=== PATIENT | female | born 1985 | race Caucasian/White ===

== ENCOUNTER → 2020-01-02 14:44 | Outpatient (CLI) | payer SELFPAY ==
--- NOTE | 2020-01-02 | DI.US.S_ITS ---
LIMITED ULTRASOUND OF RIGHT BREAST: 01/02/2020 CLINICAL: Palpable right breast lump. Comparison is made [facility] and real-time ultrasound of the right breast 10 o'clock region were performed. Ohara scale images of the real-time examination were reviewed. There is a benign 2.7 cm x 2.1 cm x 1.6 cm oval cyst in the right breast at 10 o'clock anterior depth 5 cm from the nipple. This oval cyst is anechoic with a well-defined boundary and posterior acoustic enhancement. This correlates as palpated, to the reported pain, and with mammography findings. Color flow imaging demonstrates that there is no vascularity present. IMPRESSION: BENIGN There is no sonographic evidence of malignancy. Palpable abnormality in the right breast corresponds to a 2.7 cm simple cyst and is benign. Exam findings were conveyed to the patient. Patient is advised to monitor for continued symptoms. A cyst aspiration for symptomatic relief could be considered if symptoms persist. Note, similar masses in the left breast are seen on same day mammogram. Targeted ultrasound of the left breast is recommended. This exam was interpreted at Station ID: [id number]. Electronically Signed By: Adryan Sanabria M.D. slc/:01/02/2020 17:09:34 letter sent: Normal Exam Ultrasound BI-RADS: 2 Benign
--- NOTE | 2020-01-02 | DI.MG.S_ITS ---
BILATERAL DIGITAL DIAGNOSTIC MAMMOGRAM 3D/2D: 01/02/2020 CLINICAL: Baseline exam. Right breast lump. Baseline mammogram. No prior exams were available for comparison. The tissue of both breasts is extremely dense, which lowers the sensitivity of mammography. There is a 3 cm oval low density mass with a circumscribed margin in the right breast at 10 o'clock anterior depth. This correlates as palpated and to the area of reported pain. There is a 2.7 cm oval low density mass with a circumscribed margin in the left breast at 1 o'clock posterior depth. There also is a 2 cm oval mass with a circumscribed margin in the left breast central to the nipple posterior depth. No other significant masses or calcifications are seen in either breast. IMPRESSION: INCOMPLETE: NEEDS ADDITIONAL IMAGING EVALUATION Multiple benign appearing masses bilaterally in this young patient on baseline mammogram. 1) Right breast palpable abnormality corresponds to a circumscribed low density mass in the right breast at 10 o'clock anterior depth measuring 3 cm and resembles a cyst and is indeterminate. -A targeted ultrasound is recommended and will immediately follow. 2) Left breast circumscribed low density masses measuring 2.7 cm and 2 cm resemble additional cysts and are probably benign. -Recommend targeted ultrasound for confirmation of benignity rather than follow-up mammogram to demonstrate long-term stability. This will be preformed at a different time. This exam was interpreted at Station ID: [id number]. NOTE: For mammograms, a report in lay terms will be sent to the patient. Approximately 15% of breast malignancies will not be visualized mammographically. In the management of a palpable breast mass, a negative mammogram must not discourage biopsy of a clinically suspicious lesion. Electronically Signed By: Adryan Sanabria M.D. [facility] [place]/:01/03/2020 10:32:46 Entry: aman - 01/03/2020 10:32:46 letter sent: Need Ultrasound ACR BI-RADS Category 0: Incomplete [id number]
--- NOTE | 2020-01-08 17:01 | PC.NURSE ---
Received fax noting that patient is self pay and would call to schedule breast biopsy / US due to lack of funds. Referred to [employer] to see if there is any assistance available.
== END ==
PROVIDERS: Referring Provider Nurse Practitioner; Visit Provider Nurse Practitioner
DX: R92.8 Other abnormal and inconclusive findings on diagnostic imaging of breast (principal); N60.01 Solitary cyst of right breast; N60.02 Solitary cyst of left breast
CPT/HCPCS: 76642; 77066; G0279

== ENCOUNTER 2022-02-16 10:14 | Emergency (ER) | payer SELFPAY ==
[2022-02-16] VITALS (22 sets, daily range): BP systolic 98–147; BP diastolic 56–83; PULSE 76–120; RESP 16–28; TEMP 37.3; O2SAT 96–100; BMI 26.6
--- NOTE | 2022-02-16 10:41 | DI.US.S_ITS ---
LIMITED ULTRASOUND OF LEFT BREAST AND AXILLA: 02/16/2022 CLINICAL: Palpable left breast lump and focal pain. Comparison is made to exam dated: 01/02/2020 mammogram - [facility]. Color flow and real-time ultrasound of the left breast 12-2 o'clock, and axilla regions were performed. Ohara scale images of the real-time examination were reviewed. There is a 0.6 cm x 0.5 cm x 0.4 cm oval cyst in the left breast at 12 o'clock anterior depth 1 cm from the nipple. This oval cyst is hypoechoic with posterior acoustic enhancement. Color flow imaging demonstrates that there is an adjacent vascularity. There also is a benign 3.1 cm x 2.5 cm x 2.1 cm oval simple cyst in the left breast at 1 o'clock posterior depth 7 cm from the nipple. This oval simple cyst is anechoic with a well-defined boundary and posterior acoustic enhancement. This abnormality is not significantly changed compared to mammogram in 2020 and correlates as palpated, to the reported pain, and with mammography findings. Color flow imaging demonstrates that there is no vascularity present. Additionally, there is a benign 2.8 cm x 2.1 cm x 1.2 cm oval simple cyst in the left breast at 2 o'clock posterior depth 6 cm from the nipple. This oval simple cyst is anechoic with a well-defined boundary and posterior acoustic enhancement. This abnormality is not significantly changed compared to mammogram in 2020 and correlates as palpated and with mammography findings. Color flow imaging demonstrates that there is no vascularity present. No significant abnormalities were seen sonographically in the left axilla. IMPRESSION: INCOMPLETE: NEEDS ADDITIONAL IMAGING EVALUATION The 0.6 cm complicated cyst in the left breast at 12 o'clock anterior depth is probably benign. Differential diagnosis includes a fibroadenoma. -A follow-up ultrasound in 6 months is recommended to demonstrate stability. The 3.1 cm simple cyst in the left breast at 1 o'clock posterior depth is benign. The 2.8 cm simple cyst in the left breast at 2 o'clock posterior depth is benign. These cyst correlate to the palpable abnormality in the left breast. These cysts are similar in size to the mammogram from 2020. -Cyst aspiration could be considered for pain. -Mammogram is recommended to complete the work-up for palpable breast abnormality. No enlarged left axillary lymph nodes. Exam findings were conveyed to the patient. This exam was interpreted at Station ID: [id number]. Electronically Signed By: Adryan Sanabria M.D. slc/:02/16/2022 14:21:24 letter sent: Additional Imaging Needed Ultrasound BI-RADS: 0 Indeterminate
--- NOTE | 2022-02-16 10:42 | ED_ITS ---
HPI - General Adult General Chief complaint: Fever Stated complaint: pain in breast t-21 & lower back t-3 Time Seen by Provider: 02/16/22 10:28 Source: patient Mode of arrival: Ambulatory History of Present Illness HPI narrative: 36-year-old female who is here for evaluation of pain in her left breast. This has been going on for the past 3 weeks. She is noticed a lump in the left side of her breast. It has been enlarging and becoming more painful. She states ?I do not know ?if she is had any skin changes over the area. She also states that she is been having some nipple discharge but can not describe whether not it is purulent or bloody or fluid. She has had mammograms in the past. Was told that she had ?dense breasts. She is also having right-sided lower back discomfort and also other findings consistent with a urinary tract infection. She is having dysuria. Is having nausea because of the pain. No fevers. No change in bowel habits. Has had kidney stones in the past and she states this feels different than the kidney stones. She states ?I do not know ?if the symptoms are worse with palpation or movement or breathing. Related Data Previous Rx's Medication Instructions Recorded sulfamethoxazole 800 1 tab PO BID 14 days #28 tabs 02/16/22 mg-trimethoprim 160 mg tablet (Bactrim DS) Allergies Allergy/AdvReac Type Severity Reaction Status Date / Time hydrocodone [From Vicodin] Allergy Severe ANAPHYLAXIS Verified 02/16/22 10:35 oxycodone Allergy Severe ANAPHYLAXIS Verified 02/16/22 10:35 aloe vera Allergy Unknown Verified 02/16/22 10:35 TYLER Allergy Severe ANAPHYLAXIS Uncoded 12/06/19 09:58 Review of Systems Review of Systems ROS Unobtainable: All systems reviewed & are unremarkable except as noted in HPI and below Patient History Medical History Kidney stones Lump of breast, right Surgical History History of third molar tooth extraction Social History Smoking Status: Current every day smoker Smoking Status: Current every day smoker alcohol intake frequency: a few times a month Substance Use Type: does not use Exam Initial Vital Signs Initial Vital Signs: Vital Signs Temperature 99.2 F 02/16/22 10:20 Pulse Rate 120 H 02/16/22 10:20 Respiratory Rate 22 02/16/22 10:20 Blood Pressure 147/83 H 02/16/22 10:20 Pulse Oximetry 100 02/16/22 10:20 Oxygen Delivery Method 02/16/22 10:20 Const General: No diaphoretic and other (Appears uncomfortable) HENIN Head: normal to inspection and normocephalic Chest Other: With nursing at bedside a left breast exam was performed. There is a 1 cm x 1 cm freely movable tender mass in the left breast in the upper outer quadrant. There is no overlying skin changes. No nipple discharge. No axilla lymphadenopathy felt. Resp Effort & Inspection: normal respiratory effort Cardio Rate: tachycardic GI Inspection: normal to inspection Palpation: soft, No guarding and No tender Back/Spine/Pelvis Back: CVA tenderness right Skin General: no rashes or lesions noted Neuro General: patient alert, patient awake and moves all extremities Speech: speech normal Extrem General: normal to inspection and capillary refill normal Psych Appearance: grossly normal Course Orders Ordered: ED Orders 02/16/22 10:41 US breast LT limited Stat 02/16/22 10:45 Complete Blood Count AUTO DIFF Stat Comprehensive Metabolic Panel Stat Lactate (Lactic Acid) Stat Lipase Stat Test Serum,Qual Stat Procalcitonin Stat 02/16/22 11:00 Urinalysis and Microscopic Stat Urine Culture Stat Urine Culture Stat 02/16/22 11:14 Blood Culture Stat 02/16/22 14:47 Consult to [employer]MENT MANAGER - [employer] Stat Discontinued Medications Sodium Chloride (Normal Saline 0.9%) 1,000 mls @ 1,000 mls/hr IV BOLUS ONE Stop: 02/16/22 11:28 Last Infusion: 02/16/22 12:35 Dose: 0 mls/hr Documented By: Admin: 02/16/22 10:54 Dose: 1,000 mls/hr Documented By: SANDIP Ceftriaxone Sodium 1,000 mg/ (Sodium Chloride) 100 mls @ 200 mls/hr IV NOW ONE Stop: 02/16/22 11:37 Last Infusion: 02/16/22 12:35 Dose: 0 mls/hr Documented By: Admin: 02/16/22 12:02 Dose: 200 mls/hr Documented By: ADIEL Ketorolac Tromethamine (Ketorolac 30 Mg/Ml Vial) 30 mg IV NOW ONE Stop: 02/16/22 10:30 Last Admin: 02/16/22 10:53 Dose: 30 mg Documented By: SANDIP Ondansetron HCl (Ondansetron 4 Mg/2 Ml Inj) 4 mg IV NOW ONE Stop: 02/16/22 10:47 Last Admin: 02/16/22 10:53 Dose: 4 mg Documented By: SANDIP Vital Signs Vital signs: Vital Signs - 8 hr 02/16/22 10:20 02/16/22 10:25 02/16/22 10:26 Temperature 99.2 F Pulse Rate 120 H 119 H 105 H Respiratory Rate 22 Blood Pressure 147/83 H Pulse Oximetry 100 100 99 Oxygen Delivery Method Room Air 02/16/22 10:26 02/16/22 10:30 02/16/22 10:45 Temperature Pulse Rate 112 H 120 H Respiratory Rate 28 H Blood Pressure 147/83 H Pulse Oximetry 100 99 Oxygen Delivery Method Room Air 02/16/22 11:00 02/16/22 11:10 02/16/22 11:10 Temperature Pulse Rate 106 H 112 H Respiratory Rate Blood Pressure 133/73 Pulse Oximetry 99 99 Oxygen Delivery Method 02/16/22 11:15 02/16/22 11:30 02/16/22 11:30 Temperature Pulse Rate 106 H 97 H Respiratory Rate Blood Pressure 109/62 Pulse Oximetry 98 99 Oxygen Delivery Method 02/16/22 11:45 02/16/22 12:00 02/16/22 12:00 Temperature Pulse Rate 103 H 97 H Respiratory Rate Blood Pressure 113/58 L Pulse Oximetry 97 98 Oxygen Delivery Method 02/16/22 12:15 02/16/22 12:30 02/16/22 12:30 Temperature Pulse Rate 95 H 95 H Respiratory Rate Blood Pressure 104/56 L Pulse Oximetry 98 98 Oxygen Delivery Method 02/16/22 12:45 02/16/22 13:00 02/16/22 13:00 Temperature Pulse Rate 94 H 85 Respiratory Rate Blood Pressure 103/62 Pulse Oximetry 96 96 Oxygen Delivery Method Room Air 02/16/22 13:15 02/16/22 13:30 02/16/22 13:30 Temperature Pulse Rate 92 H 88 Respiratory Rate Blood Pressure 104/59 L Pulse Oximetry 97 96 Oxygen Delivery Method Room Air Room Air 02/16/22 13:45 02/16/22 14:00 02/16/22 14:00 Temperature Pulse Rate 87 83 Respiratory Rate Blood Pressure 98/57 L Pulse Oximetry 97 96 Oxygen Delivery Method Room Air 02/16/22 14:15 02/16/22 14:30 02/16/22 14:30 Temperature Pulse Rate 85 87 Respiratory Rate Blood Pressure 99/61 Pulse Oximetry 97 97 Oxygen Delivery Method 02/16/22 15:45 Temperature Pulse Rate 76 Respiratory Rate 16 Blood Pressure 98/56 L Pulse Oximetry 98 Oxygen Delivery Method Room Air Medical Decision Making Lab Data Lab results reviewed: Yes I reviewed the patient's lab results. Result diagrams: 02/16/22 10:45 02/16/22 10:45 Labs: Lab Results 02/16/22 02/16/22 02/16/22 Range/Units 10:45 10:45 10:45 WBC 6.8 (4.5-11.0) X10^3/uL RBC 4.51 (4.0-5.2) X10^6/uL Hgb 13.7 (12.0-16.0) g/dL Hct 40.7 (36-46) % MCV 90.3 (80-100) fL MCH 30.4 (26-34) PG MCHC 33.6 (30-36) % RDW 13.5 (11.6-14.8) % Plt Count 188 (150-400) X10^3/uL Neut % (Auto) 92.6 H (50-75) % Lymph % (Auto) 5.7 L (25-40) % Marathon % (Auto) 0.6 L (3-14) % Eos % (Auto) 1.0 L (2-4) % Baso % (Auto) 0.1 (0-2) % Neut # (Auto) 6300 (3390-5583) /uL Lymph # (Auto) 400 L (5287-0849) /uL Marathon # (Auto) 0 (0-900) /uL Eos # (Auto) 100 (0-450) /uL Baso # (Auto) 0 (0-100) /uL Sodium 137 (137-145) mmol/L Potassium 4.0 (3.4-5.1) mmol/L Chloride 103 (98-107) mmol/L Carbon Dioxide 26 (22-32) mmol/L BUN 14 (7-17) mg/dL Creatinine 0.89 (0.52-1.04) mg/dL Estimated GFR > 60 (>60) mL/min BUN/Creatinine Ratio 15.7 (6-22) Glucose 113 H (70-100) mg/dL Lactate 1.8 (0.7-2.1) mmol/L Calcium 9.1 (8.4-10.2) mg/dL Total Bilirubin 1.0 (0.2-1.3) mg/dL AST 22 (14-36) IU/L ALT 20 (<35) IU/L Alkaline Phosphatase 78 (38-126) U/L Total Protein 7.7 (6.3-8.2) g/dL Albumin 4.4 (3.5-5.0) g/dL Globulin 3.3 (1.7-4.1) g/dL Albumin/Globulin Ratio 1.3 (1.0-2.8) Lipase 69 (23-300) U/L Procalcitonin 0.11 (<0.5) ng/mL Serum , Qual (Negative) Urine Color Urine Appearance Urine pH (4.5-8.0) Ur Specific Liberal (1.000-1.035) Urine Protein (Negative) Urine Glucose (UA) (Negative) g/dL Urine Ketones (NEGATIVE) Urine Occult Blood (Negative) Urine Nitrate (Negative) Urine Bilirubin (NEGATIVE) Urine Urobilinogen (0.2) E.U./dL Ur Leukocyte Esterase (NEGATIVE) Urine RBC (0-5/HPF) Urine WBC (0-5/HPF) Ur Squamous Epith Cells (0-5/HPF) Urine Bacteria (None) Ur Culture Indicated? 02/16/22 02/16/22 Range/Units 10:45 11:00 WBC (4.5-11.0) X10^3/uL RBC (4.0-5.2) X10^6/uL Hgb (12.0-16.0) g/dL Hct (36-46) % MCV (80-100) fL MCH (26-34) PG MCHC (30-36) % RDW (11.6-14.8) % Plt Count (150-400) X10^3/uL Neut % (Auto) (50-75) % Lymph % (Auto) (25-40) % Marathon % (Auto) (3-14) % Eos % (Auto) (2-4) % Baso % (Auto) (0-2) % Neut # (Auto) (3742-2069) /uL Lymph # (Auto) (0240-7285) /uL Marathon # (Auto) (0-900) /uL Eos # (Auto) (0-450) /uL Baso # (Auto) (0-100) /uL Sodium (137-145) mmol/L Potassium (3.4-5.1) mmol/L Chloride (98-107) mmol/L Carbon Dioxide (22-32) mmol/L BUN (7-17) mg/dL Creatinine (0.52-1.04) mg/dL Estimated GFR (>60) mL/min BUN/Creatinine Ratio (6-22) Glucose (70-100) mg/dL Lactate (0.7-2.1) mmol/L Calcium (8.4-10.2) mg/dL Total Bilirubin (0.2-1.3) mg/dL AST (14-36) IU/L ALT (<35) IU/L Alkaline Phosphatase (38-126) U/L Total Protein (6.3-8.2) g/dL Albumin (3.5-5.0) g/dL Globulin (1.7-4.1) g/dL Albumin/Globulin Ratio (1.0-2.8) Lipase (23-300) U/L Procalcitonin (<0.5) ng/mL Serum , Qual Negative (Negative) Urine Color Yellow Urine Appearance Cloudy Urine pH 6.5 (4.5-8.0) Ur Specific Liberal 1.015 (1.000-1.035) Urine Protein 2+ H (Negative) Urine Glucose (UA) Negative (Negative) g/dL Urine Ketones Negative (NEGATIVE) Urine Occult Blood 3+ H (Negative) Urine Nitrate Positive H (Negative) Urine Bilirubin Negative (NEGATIVE) Urine Urobilinogen 0.2 (0.2) E.U./dL Ur Leukocyte Esterase 3+ H (NEGATIVE) Urine RBC >100/hpf H (0-5/HPF) Urine WBC >100/hpf H (0-5/HPF) Ur Squamous Epith Cells 0-1 /hpf (0-5/HPF) Urine Bacteria Many (>30) H (None) Ur Culture Indicated? Specimen cultured Imaging Data Breast ultrasound: Radiologist's Impression: [address] [address] Ultrasound Report Signed Patient: Bia Rausch MR#: [id number] : 1985 Acct:[id number] Age/Sex: 36 / F Date of Service: 02/16/22 Loc: ED Accession Number: [id number] ?? Procedure: US breast LT limited Ordering Provider: Gus Temple D.O. LIMITED ULTRASOUND OF LEFT BREAST AND AXILLA: 02/16/2022 CLINICAL: Palpable left breast lump and focal pain.? ? Comparison is made to exam dated:? 01/02/2020 mammogram - [facility].? ? Color flow and real-time ultrasound of the left breast 12-2 o'clock, and axilla regions were performed.? Ohara scale images of the real-time examination were reviewed.? ? There is a 0.6 cm x 0.5 cm x 0.4 cm oval cyst in the left breast at 12 o'clock anterior depth 1 cm from the nipple.? This oval cyst is hypoechoic with posterior acoustic enhancement.? Color flow imaging demonstrates that there is an adjacent vascularity.? ? There also is a benign 3.1 cm x 2.5 cm x 2.1 cm oval simple cyst in the left breast at 1 o'clock posterior depth 7 cm from the nipple.? This oval simple cyst is anechoic with a well-defined boundary and posterior acoustic enhancement.? This abnormality is not significantly changed compared to mammogram in 2019 and correlates as palpated, to the reported pain, and with mammography findings.? Color flow imaging demonstrates that there is no vascularity present.? ? Additionally, there is a benign 2.8 cm x 2.1 cm x 1.2 cm oval simple cyst in the left breast at 2 o'clock posterior depth 6 cm from the nipple.? This oval simple cyst is anechoic with a well-defined boundary and posterior acoustic enhancement.? This abnormality is not significantly changed compared to mammogram in 2019 and correlates as palpated and with mammography findings.? Color flow imaging demonstrates that there is no vascularity present.? ? No significant abnormalities were seen sonographically in the left axilla.? ? IMPRESSION: INCOMPLETE: NEEDS ADDITIONAL IMAGING EVALUATION The 0.6 cm complicated cyst in the left breast at 12 o'clock anterior depth is probably benign. Differential diagnosis includes a fibroadenoma. -A follow-up ultrasound in 6 months is recommended to demonstrate stability.? ? The 3.1 cm simple cyst in the left breast at 1 o'clock posterior depth is benign.? The 2.8 cm simple cyst in the left breast at 2 o'clock posterior depth is benign. These cyst correlate to the palpable abnormality in the left breast. These cysts are similar in size to the mammogram from 2019. -Cyst aspiration could be considered for pain. ? -Mammogram is recommended to complete the work-up for palpable breast abnorm ality. ? No enlarged left axillary lymph nodes. ? Exam findings were conveyed to the patient.? ? This exam was interpreted at Station ID: [id number].? Electronically Signed By: Adryan Sanabria M.D.? slc/:02/16/2022 14:21:24? ? ? letter sent: Additional Imaging Needed? Ultrasound BI-RADS: 0 Indeterminate MDM Narrative Medical decision making narrative: Patient does have a nitrite positive urine and UTI like symptoms. Given her p resentation and her right-sided flank pain there is concern about pyelonephritis. The rest of her labs are unremarkable. Ultrasound of the breast shows cysts what she is feeling. She does have a cyst that requires ultrasound follow-up in approximately 6 months. I did discuss this with her. It is also recommended that she have a mammogram. I discussed this with her as well. Patient states she does not have a primary doctor and does not have insurance. Social work consult was placed. She did expressed understanding of the recommendations above. Will send home with antibiotics. She was given return precautions. She expressed understanding and agreement. Discharge Plan Departure Patient Disposition: Home Clinical Impression: Pyelonephritis, Cyst of left breast Instructions: DI for Kidney Infection, DI for Breast Cyst Activity Restrictions/Additional Instructions: Antibiotics were sent to [facility] per your request. The ultrasound today does show cysts in your left breast. You do need a follow-up with a mammogram and also a follow-up ultrasound in 6 weeks. You do need to make contact with the primary doctor. Return to the emergency department for any new symptoms. Prescriptions: New sulfamethoxazole-trimethoprim [Bactrim DS] 800-160 mg tablet 1 tab PO BID 14 Days Qty: 28 0RF Referrals: Miscellaneous,Doctor, MD [Primary Care Provider] - Visit Report Forms: Patient Portal/API
[2022-02-16] MEDS: KETOROLAC 30 MG/ML VIAL IV (10:53)
[2022-02-16] MEDS: ONDANSETRON 4 MG/2 ML INJ IV (10:53)
[2022-02-16] MEDS: SODIUM CHLORIDE 0.9% 1,000 ML 1000 ML IV (10:54)
[2022-02-16 10:55] LABS: Add Manual Diff / Slide Review NO; Basophils Absolute Auto 0 /uL (0-100); Basophils Percent Auto 0.1 % (0-2); Eosinophils Absolute Auto 100 /uL (0-450); Hematocrit 40.7 % (36-46); Hemoglobin 13.7 g/dL (12.0-16.0); Lymphocytes Absolute Auto 400 /uL (1100-4500); Lymphocytes Percent Auto 5.7 % (25-40); Mean Corpuscular HGB Conc 33.6 % (30-36); Mean Corpuscular Hemoglobin 30.4 PG (26-34); Mean Corpuscular Volume 90.3 fL (80-100); Monocytes Absolute Auto 0 /uL (0-900); Monocytes Percent Auto 0.6 % (3-14); Neutrophils Absolute Auto 6300 /uL (1500-7000); Neutrophils Percent Auto 92.6 % (50-75); Platelet Count 188 X10^3/uL (150-400); Red Blood Cell Count 4.51 X10^6/uL (4.0-5.2); Red Cell Distribution Width 13.5 % (11.6-14.8); White Blood Cell Count 6.8 X10^3/uL (4.5-11.0)
[2022-02-16 11:06] LABS: Alanine Aminotransferase 20 IU/L (<35); Albumin 4.4 g/dL (3.5-5.0); Albumin Globulin Ratio 1.3 (1.0-2.8); Alkaline Phosphatase 78 U/L (38-126); Aspartate Aminotransferase 22 IU/L (14-36); BUN Creatinine Ratio 15.7 (6-22); Blood Urea Nitrogen 14 mg/dL (7-17); Calcium 9.1 mg/dL (8.4-10.2); Carbon Dioxide 26 mmol/L (22-32); Chloride 103 mmol/L (98-107); Estimated Glomerular Filt Rate > 60 mL/min (>60); Globulin 3.3 g/dL (1.7-4.1); Glucose 113 mg/dL (70-100); HEMOLYSIS < 15 (0-50); Lactate (Lactic Acid) 1.8 mmol/L (0.7-2.1); Lipase 69 U/L (23-300); Sodium 137 mmol/L (137-145); Total Protein 7.7 g/dL (6.3-8.2)
[2022-02-16 11:14] LABS: Pregnancy Test Serum,Qual Negative (Negative)
[2022-02-16 11:22] LABS: Procalcitonin 0.11 ng/mL (<0.5)
[2022-02-16 11:24] LABS: Appearance Urine UA CLOUDY; Bilirubin Urine UA NEGATIVE (NEGATIVE); Color Urine UA YELLOW; Glucose Urine UA NEGATIVE (Negative); Ketones Urine UA NEGATIVE (NEGATIVE); Leukocyte Esterase Urine UA 3+ (NEGATIVE); Nitrite Urine UA POSITIVE (Negative); Occult Blood Urine UA 3+ (Negative); Protein Urine UA 2+ (Negative); Specific Gravity Urine UA 1.015 (1.000-1.035); Urobilinogen Urine UA 0.2 E.U./dL (0.2)
[2022-02-16 11:25] LABS: pH Urine UA 6.5 (4.5-8.0)
[2022-02-16 11:34] LABS: RBC Urine >100/HPF (0-5/HPF)
[2022-02-16 11:35] LABS: Bacteria Urine Many (>30); Culture Indicated Urine Specimen Cultured; Squamous Epithelial Cell Urine 0-1 /HPF (0-5/HPF); WBC Urine >100/HPF (0-5/HPF)
[2022-02-16] MEDS: cefTRIAXone 1,000 MG in SODIUM CHLORIDE 0.9% 100 ML 200 MG IV (12:02)
--- NOTE | 2022-02-16 14:51 | PC.NURSE ---
Pt reports she has no primary care provider and needs assistance with setting up insurance and finding a provider. Social work consult ordered by Dr. Temple. Social work to see pt before discharge.
[2022-02-17 04:02] LABS: Acinetobacter baumannii Not Detected (Not Detect); Enterobacteriaceae species Detected (Not Detect); Enterococcus species Not Detected (Not Detect); KPC (carbapenem-resist gene) Not Detected (Not Detect); Listeria monocytogenes Not Detected (Not Detect); Staphylococcus species Not Detected (Not Detect); Streptococcus agalactiae (Gr B Not Detected (Not Detect); Streptococcus pneumonia Not Detected (Not Detect); Streptococcus pyogenes (Gr A) Not Detected (Not Detect); Streptococcus species Not Detected (Not Detect)
[2022-02-17 04:03] LABS: Candida albicans Not Detected (Not Detect); Candida glabrata Not Detected (Not Detect); Candida krusei Not Detected (Not Detect); Candida parapsilosis Not Detected (Not Detect); E. coli Detected (Not Detect); Enterobacter cloacae complex Not Detected (Not Detect); Haemophilus influenzae Not Detected (Not Detect); Neisseria meningitidis Not Detected (Not Detect); Proteus species Not Detected (Not Detect); Pseudomonas aeruginosa Not Detected (Not Detect); Serratia marcescens Not Detected (Not Detect)
[2022-02-17 04:04] LABS: Candida tropicalis Not Detected (Not Detect)
== END 2022-02-16 15:45 | disposition home or self-care (01) ==
PROVIDERS: Emergency Provider Emergency Medicine
DX: N12 Tubulo-interstitial nephritis, not specified as acute or chronic (principal); N60.02 Solitary cyst of left breast
CPT/HCPCS: 36415; 76642; 80053; 81001; 83605; 83690; 84145; 84703; 85025; 87040; 87077; 87086; 87150; 87186; 96365; 96375; 99284; J0696; J1885; J2405